=== PATIENT | female | born 1935 | race Caucasian/White ===

== ENCOUNTER 2022-07-29 17:06 | Inpatient (IN) | payer OTHER ==
[~2022-07-29] VITALS: Ht 162.6 cm; Wt 54.0 kg
[2022-07-29 17:22] VITALS: BP_SYST 145
[2022-07-29 17:42] LABS: BASOPHILS % (AUTO) 0.3 % (0.0-2.0); EOSINOPHILS % (AUTO) 0.1 % (0.0-4.0); HEMATOCRIT 36.6 % (36-48); HEMOGLOBIN 12.4 g/dL (12.0-16.0); LYMPHOCYTES # (AUTO) 0.5 K/uL (1.0-5.5); LYMPHOCYTES % (AUTO) 4.5 % (20.5-51.5); MEAN CORPUSCULAR HEMOGLOBIN 30 pg (27-31); MEAN CORPUSCULAR HGB CONC 34 % (32-36); MEAN CORPUSCULAR VOLUME 88 fL (79.0-98.0); MONOCYTES # (AUTO) 0.4 K/uL (0.0-1.0); MONOCYTES % (AUTO) 3.3 % (1.7-9.3); NEUTROPHILS # (AUTO) 11.1 K/uL (1.8-7.7); NEUTROPHILS % (AUTO) 91.8 % (40.0-70.0); PLATELET COUNT (AUTO) 213 K/uL (130-430); RED BLOOD CELL COUNT(AUTO) 4.16 MIL/uL (4.2-6.2); RED CELL DISTRIBUTION WIDTH 13.6 % (9.0-15.0); WHITE BLOOD COUNT (AUTO) 12.1 K/uL (4.8-10.8)
[2022-07-29 17:58] LABS: INR 1.1 (0.8-1.2)
[2022-07-29 18:14] LABS: ACETONE, SERUM NEGATIVE (NEGATIVE)
[2022-07-29 18:19] LABS: ANION GAP 12 (5-15); CALCIUM 8.7 mg/dL (8.4-11.0); CHLORIDE 103 mmol/L (98-107); CREATININE 1.11 mg/dL (0.55-1.30); GLUCOSE 129 mg/dL (70-99); UREA NITROGEN, BLOOD 24 mg/dL (8-21)
[2022-07-29 18:29] LABS: ALANINE AMINOTRANSFERASE 18 U/L (12-78); ALBUMIN 3.1 g/dL (3.4-4.8); ASPARTATE AMINOTRANSFERASE 15 U/L (10-37); FREE T4 (FREE THYROXINE) 1.2 ng/dL (0.6-1.6); LIPASE 80 U/L (73-393); THYROID STIMULATING HORMONE 1.81 uIu/mL (0.34-4.82); TOTAL BILIRUBIN 0.7 mg/dL (0.0-1.0)
[2022-07-29] MEDS ORDERED: NS 500 ML IV ONE (19:00)
[2022-07-29] MEDS ORDERED: ACETAMINOPHEN 325 MG TABLET PO ONE (19:00)
[2022-07-29 20:27] LABS: BILIRUBIN,URINE NEGATIVE (NEGATIVE); BLOOD, URINE 1+ (NEGATIVE); COLOR,URINE YELLOW (YELLOW); GLUCOSE,URINE NEGATIVE (NEGATIVE); KETONES,URINE NEGATIVE (NEGATIVE); LEUKOCYTE ESTERASE ,URINE TRACE (NEGATIVE); NITRITE, URINE POSITIVE (NEGATIVE); PH,URINE 5.5 (5.0-8.0); PROTEIN URINE 2+ (NEGATIVE); UROBILINOGEN,URINE 0.2 (0.2-1.0)
[2022-07-29] MEDS ORDERED: L.RH1CAP PO (20:57)
[2022-07-29] MEDS ORDERED: CALC-995 PO (20:57)
[2022-07-29] MEDS ORDERED: BETA1TAB20 PO (20:57)
[2022-07-29] MEDS ORDERED: FURO-150 PO (20:57)
[2022-07-29] MEDS ORDERED: CYAN50009 PO (20:57)
[2022-07-29] MEDS ORDERED: FLUT1DIS IH (20:57)
[2022-07-29] MEDS ORDERED: POTA8TAB66 PO (20:57)
[2022-07-29 21:08] LABS: CLARITY/URINE HAZY (CLEAR)
[2022-07-29 21:39] LABS: RBC,URINE 0-3 /HPF (0-3)
[2022-07-29 21:40] LABS: BACTERIA,URINE MANY /HPF (None Seen); MUCUS,URINE None Seen /LPF (None Seen); WBC,URINE 20-50 /HPF (0-3)
[2022-07-29] MEDS ORDERED: cefTRIAXone 1 GM in D5W 50 ML IV ONE (21:45)
[2022-07-29] MEDS ORDERED: cefTRIAXone 1 GM VIAL ONE (21:56)
[2022-07-29] MEDS: NACL 0.9% 1,000 ML IV SCH (22:00)
[2022-07-30] VITALS: BP_SYST 135
[2022-07-30 00:13] VITALS: BP_SYST 106
[2022-07-30 08:00] VITALS: BP_SYST 114
[2022-07-30] MEDS ORDERED: ONDANSETRON HCL 4 MG/2 ML VIAL IVP PRN (10:30)
[2022-07-30] MEDS ORDERED: LORazepam 2 MG/ML VIAL IVP PRN (10:30)
[2022-07-30] MEDS ORDERED: ALBUTEROL SULFATE 0.083% 2.5 MG/3 ML VIAL.NEB INH PRN (10:30)
[2022-07-30] MEDS ORDERED: ACETAMINOPHEN 325 MG TABLET PO PRN ×2 (10:30→11:00)
[2022-07-30] MEDS ORDERED: IPRATROPIUM BROM 0.5 MG/2.5 ML VIAL.NEB (ATROVENT) INH PRN (10:30)
[2022-07-30 11:31] VITALS: BP_SYST 117
[2022-07-30] MEDS: ALBUTEROL SULFATE 0.083% 2.5 MG/3 ML VIAL.NEB INH SCH ×2 (13:22→20:14)
[2022-07-30] MEDS: NORMAL SALINE 5 ML DISP.SYRIN IVF SCH ×4 (14:09→22:00)
[2022-07-30 15:41] VITALS: BP_SYST 107
[2022-07-30] MEDS: NACL 0.9% 1,000 ML IV SCH (17:48)
[2022-07-30 20:00] VITALS: BP_SYST 123
[2022-07-30] MEDS: BUDESONIDE 0.5 MG/2 ML AMPUL.NEB INH SCH (20:23)
[2022-07-30] MEDS ORDERED: cefTRIAXone 1 GM IVPB PREMIX 50 ML IV SCH (21:00)
[2022-07-30] MEDS: cefTRIAXone 1 GM IVPB PREMIX 50 ML IV SCH (21:40)
[2022-07-30] MEDS: DOXYCYCLINE HYCLATE 100 MG in D5W 100 ML IV SCH (22:36)
[2022-07-31 00:09] VITALS: BP_SYST 109
[2022-07-31] MEDS: ALBUTEROL SULFATE 0.083% 2.5 MG/3 ML VIAL.NEB INH SCH ×4 (01:48→20:23)
[2022-07-31 05:02] LABS: BASOPHILS % (AUTO) 0.2 % (0.0-2.0); EOSINOPHILS % (AUTO) 0.1 % (0.0-4.0); HEMATOCRIT 32.9 % (36-48); HEMOGLOBIN 10.9 g/dL (12.0-16.0); LYMPHOCYTES % (AUTO) 9.7 % (20.5-51.5); MEAN CORPUSCULAR HEMOGLOBIN 29 pg (27-31); MEAN CORPUSCULAR HGB CONC 33 % (32-36); MEAN CORPUSCULAR VOLUME 88 fL (79.0-98.0); MONOCYTES # (AUTO) 1.3 K/uL (0.0-1.0); MONOCYTES % (AUTO) 13.5 % (1.7-9.3); NEUTROPHILS # (AUTO) 7.6 K/uL (1.8-7.7); NEUTROPHILS % (AUTO) 76.5 % (40.0-70.0); PLATELET COUNT (AUTO) 188 K/uL (130-430); RED BLOOD CELL COUNT(AUTO) 3.73 MIL/uL (4.2-6.2); RED CELL DISTRIBUTION WIDTH 13.8 % (9.0-15.0)
[2022-07-31 05:23] LABS: ERYTHROCYTE SEDIMENTATION RATE 43 MM/HR (0-20)
[2022-07-31 05:24] LABS: ANION GAP 8 (5-15); CALCIUM 8.1 mg/dL (8.4-11.0); CHLORIDE 104 mmol/L (98-107); CREATININE 1.15 mg/dL (0.55-1.30); GLUCOSE 103 mg/dL (70-99); UREA NITROGEN, BLOOD 21 mg/dL (8-21)
[2022-07-31] MEDS: NORMAL SALINE 5 ML DISP.SYRIN IVF SCH ×6 (06:00→21:06)
[2022-07-31] MEDS: BUDESONIDE 0.5 MG/2 ML AMPUL.NEB INH SCH ×2 (07:15→20:23)
[2022-07-31 07:46] VITALS: BP_SYST 122
[2022-07-31] MEDS: CYANOCOBALAMIN (VITAMIN B-12) 1,000 MCG TABLET PO SCH (08:30)
[2022-07-31] MEDS: CALCIUM CARBONATE/VITAMIN D3 1 TAB TABLET PO SCH (08:30)
[2022-07-31] MEDS: LACTOBACILLUS RHAMNOSUS GG 1 CAP CAPSULE PO SCH (08:30)
[2022-07-31] MEDS: DOXYCYCLINE HYCLATE 100 MG in D5W 100 ML IV SCH ×2 (08:30→22:00)
[2022-07-31 11:20] VITALS: BP_SYST 124
[2022-07-31] MEDS: NACL 0.9% 1,000 ML IV SCH (13:50)
[2022-07-31 17:25] VITALS: BP_SYST 144
[2022-07-31] MEDS: cefTRIAXone 1 GM IVPB PREMIX 50 ML IV SCH (20:00)
[2022-08-01] VITALS: BP_SYST 121
[2022-08-01] MEDS: ALBUTEROL SULFATE 0.083% 2.5 MG/3 ML VIAL.NEB INH SCH ×4 (01:00→20:14)
[2022-08-01 04:23] VITALS: BP_SYST 129
[2022-08-01] MEDS: NORMAL SALINE 5 ML DISP.SYRIN IVF SCH ×4 (05:25→21:56)
[2022-08-01 06:14] LABS: ERYTHROCYTE SEDIMENTATION RATE 61 MM/HR (0-20)
[2022-08-01 06:19] LABS: BASOPHILS % (AUTO) 0.5 % (0.0-2.0); EOSINOPHILS # (AUTO) 0.1 K/uL (0.0-0.4); EOSINOPHILS % (AUTO) 0.8 % (0.0-4.0); HEMATOCRIT 31.9 % (36-48); HEMOGLOBIN 10.8 g/dL (12.0-16.0); LYMPHOCYTES # (AUTO) 0.8 K/uL (1.0-5.5); LYMPHOCYTES % (AUTO) 9.9 % (20.5-51.5); MEAN CORPUSCULAR HEMOGLOBIN 30 pg (27-31); MEAN CORPUSCULAR HGB CONC 34 % (32-36); MEAN CORPUSCULAR VOLUME 88 fL (79.0-98.0); MONOCYTES # (AUTO) 1.3 K/uL (0.0-1.0); MONOCYTES % (AUTO) 15.8 % (1.7-9.3); NEUTROPHILS # (AUTO) 5.8 K/uL (1.8-7.7); PLATELET COUNT (AUTO) 227 K/uL (130-430); RED BLOOD CELL COUNT(AUTO) 3.64 MIL/uL (4.2-6.2); RED CELL DISTRIBUTION WIDTH 13.4 % (9.0-15.0)
[2022-08-01 06:44] LABS: ALANINE AMINOTRANSFERASE 10 U/L (12-78); ALBUMIN 2.1 g/dL (3.4-4.8); ANION GAP 7 (5-15); ASPARTATE AMINOTRANSFERASE 7 U/L (10-37); C-REACTIVE PROTEIN QUANT 15.3 mg/dL (0-0.5); CALCIUM 8.5 mg/dL (8.4-11.0); CHLORIDE 106 mmol/L (98-107); CREATININE 0.99 mg/dL (0.55-1.30); GLUCOSE 88 mg/dL (70-99); PHOSPHORUS 2.9 mg/dL (2.7-4.5); TOTAL BILIRUBIN 0.3 mg/dL (0.0-1.0); UREA NITROGEN, BLOOD 16 mg/dL (8-21)
[2022-08-01] MEDS: BUDESONIDE 0.5 MG/2 ML AMPUL.NEB INH SCH ×2 (07:47→20:14)
[2022-08-01 08:00] VITALS: BP_SYST 131
[2022-08-01] MEDS: CYANOCOBALAMIN (VITAMIN B-12) 1,000 MCG TABLET PO SCH (09:21)
[2022-08-01] MEDS: CALCIUM CARBONATE/VITAMIN D3 1 TAB TABLET PO SCH (09:21)
[2022-08-01] MEDS: LACTOBACILLUS RHAMNOSUS GG 1 CAP CAPSULE PO SCH (09:21)
[2022-08-01] MEDS: DOXYCYCLINE HYCLATE 100 MG in D5W 100 ML IV SCH (09:22)
[2022-08-01 11:30] VITALS: BP_SYST 127
[2022-08-01] MEDS ORDERED: SULFAMETHOXAZOLE/TRIMETHOPR DS 1 TABLET PO ONE (14:00)
[2022-08-01] MEDS ORDERED: levoFLOXacin 250 MG TABLET PO ONE (14:00)
[2022-08-01 17:11] VITALS: BP_SYST 121
[2022-08-01] MEDS: cefTRIAXone 1 GM IVPB PREMIX 50 ML IV SCH (21:52)
[2022-08-01 23:20] VITALS: BP_SYST 122
[2022-08-02] VITALS: BP_SYST 120
[2022-08-02] MEDS: ALBUTEROL SULFATE 0.083% 2.5 MG/3 ML VIAL.NEB INH SCH ×3 (01:00→12:19)
[2022-08-02] MEDS: NORMAL SALINE 5 ML DISP.SYRIN IVF SCH (04:16)
[2022-08-02 04:28] VITALS: BP_SYST 125
[2022-08-02 07:05] LABS: BASOPHILS % (AUTO) 0.3 % (0.0-2.0); EOSINOPHILS # (AUTO) 0.1 K/uL (0.0-0.4); EOSINOPHILS % (AUTO) 1.2 % (0.0-4.0); HEMATOCRIT 33.4 % (36-48); HEMOGLOBIN 11.2 g/dL (12.0-16.0); LYMPHOCYTES # (AUTO) 0.5 K/uL (1.0-5.5); LYMPHOCYTES % (AUTO) 7.7 % (20.5-51.5); MEAN CORPUSCULAR HEMOGLOBIN 29 pg (27-31); MEAN CORPUSCULAR HGB CONC 33 % (32-36); MEAN CORPUSCULAR VOLUME 87 fL (79.0-98.0); MONOCYTES # (AUTO) 0.8 K/uL (0.0-1.0); MONOCYTES % (AUTO) 12.4 % (1.7-9.3); NEUTROPHILS # (AUTO) 4.7 K/uL (1.8-7.7); NEUTROPHILS % (AUTO) 78.4 % (40.0-70.0); PLATELET COUNT (AUTO) 265 K/uL (130-430); RED BLOOD CELL COUNT(AUTO) 3.83 MIL/uL (4.2-6.2); RED CELL DISTRIBUTION WIDTH 13.5 % (9.0-15.0); WHITE BLOOD COUNT (AUTO) 6.1 K/uL (4.8-10.8)
[2022-08-02 07:10] LABS: ERYTHROCYTE SEDIMENTATION RATE 44 MM/HR (0-20)
[2022-08-02 07:32] LABS: ANION GAP 8 (5-15); C-REACTIVE PROTEIN QUANT 10.1 mg/dL (0-0.5); CALCIUM 8.8 mg/dL (8.4-11.0); CHLORIDE 105 mmol/L (98-107); CREATININE 1.19 mg/dL (0.55-1.30); GLUCOSE 93 mg/dL (70-99); UREA NITROGEN, BLOOD 21 mg/dL (8-21)
[2022-08-02] MEDS: BUDESONIDE 0.5 MG/2 ML AMPUL.NEB INH SCH (07:44)
[2022-08-02 08:00] VITALS: BP_SYST 119
[2022-08-02] MEDS ORDERED: SULFAMETHOXAZOLE/TRIMETHOPR DS 1 TABLET PO SCH (09:00)
[2022-08-02] MEDS: LACTOBACILLUS RHAMNOSUS GG 1 CAP CAPSULE PO SCH (09:06)
[2022-08-02] MEDS: CALCIUM CARBONATE/VITAMIN D3 1 TAB TABLET PO SCH (09:06)
[2022-08-02] MEDS: CYANOCOBALAMIN (VITAMIN B-12) 1,000 MCG TABLET PO SCH (09:06)
[2022-08-02 09:45] VITALS: BP_SYST 119
[2022-08-02] MEDS ORDERED: levoFLOXacin 250 MG TABLET PO SCH (10:00)
[2022-08-02 10:32] VITALS: BP_SYST 119
[2022-08-02 12:00] VITALS: BP_SYST 107
[2022-08-02] MEDS ORDERED: LEVO250T73 PO ×3 (13:59→15:57)
[2022-08-02] MEDS ORDERED: SULF1TAB48 PO ×3 (13:59→15:57)
== END 2022-08-02 16:10 | disposition home or self-care (01) | DRG 871 ==
LOC: SED 17:06 → SMU 22:00
PROVIDERS: ADMIT Internal Medicine; ATTEND Internal Medicine
DX: A41.9 Sepsis, unspecified organism (principal); E43 Unspecified severe protein-calorie malnutrition; G92.8 Other toxic encephalopathy; J18.9 Pneumonia, unspecified organism; N39.0 Urinary tract infection, site not specified; B96.89 Other specified bacterial agents as the cause of diseases classified elsewhere; D72.829 Elevated white blood cell count, unspecified; R79.89 Other specified abnormal findings of blood chemistry; E88.09 Other disorders of plasma-protein metabolism, not elsewhere classified; E83.52 Hypercalcemia; R53.81 Other malaise; J45.909 Unspecified asthma, uncomplicated; I11.0 Hypertensive heart disease with heart failure; Z20.822 Contact with and (suspected) exposure to COVID-19; I50.9 Heart failure, unspecified; D64.9 Anemia, unspecified; Z88.5 Allergy status to narcotic agent; Z79.899 Other long term (current) drug therapy; Z68.20 Body mass index [BMI] 20.0-20.9, adult
CPT/HCPCS: 36415; 70450-TC; 71045; 76376; 80048; 80053; 81000; 82009; 82550; 83605; 83690; 83735; 84100; 84439; 84443; 84484; 85025; 85610-TC; 85651-TC; 85730-TC; 86140; 87086; 93005; 94640; 94760; 96361; 96365; 96375; 97110-GP; 97116-GP; 97163-GP; 97530-GP; 99285; J0696; J3490; J7060; J7613; J7626